=== PATIENT | female | born 1965 | race Caucasian/White ===

== ENCOUNTER 2017-09-28 11:57 | Emergency (ER) | payer BC, OTHER ==
[~2017-09-28] VITALS: Ht 166.4 cm; Wt 91.6 kg
[2017-09-28 12:01] VITALS: TEMP 36.9; Ht 166.4 cm; Wt 91.6 kg
[2017-09-28] MEDS ORDERED: ACETAMINOPHEN 500 MG TAB PO STA (12:11)
--- NOTE | 2017-09-28 13:08 | DIAGNOSTIC IMAGING REPORT ---
L ELBOW MIN 3 VIEWS ROUTINE, L FOREARM 2 VIEWS ROUTINE HISTORY: 51 years-old Female foosh, eval fx, subluxation acute left forearm and left elbow pain status post trauma COMPARISON: None available TECHNIQUE: 3 views of the left elbow and 2 views of the left forearm FINDINGS: ELBOW: 3 mm corticated bone fragment is seen within the distribution of the common extensor tendon origin suggesting. No acute fracture or subluxation is identified. No large joint effusion or opaque foreign body. FOREARM: No acute fracture or subluxation identified. No opaque foreign body or significant soft tissue swelling. IMPRESSION: 1. No acute fracture or subluxation. 2. 3 mm corticated bone fragment within the region of the common extensor tendon is likely dystrophic. The above report was generated using voice recognition software. It may contain grammatical, syntax or spelling errors. Electronically signed by: Kirk Bowen M.D. 09/28/2017 1:06 PM Dictated Date/Time: 09/28/2017 1:04 PM
--- NOTE | 2017-09-28 13:16 | EMERGENCY ROOM VISIT NOTE ---
ED Visit Note First contact with patient: 12:06 CHIEF COMPLAINT: Elbow injury HISTORY OF PRESENT ILLNESS: This is a 51-year-old female who presents to the emergency department after a fall onto the elbow and left arm earlier this morning around 10:30 AM. The patient states she was carrying in groceries when she slipped, falling forward and put her left arm out to stop herself. She said she landed on her hand first and then hit her elbow. She feels like her elbow hyperextended when she fell. She had immediate pain in the elbow that has gotten gradually worse, is constant, throbbing and aching, worse with movement, better with certain positioning and rest, 8/10. She did not take any medications for the pain. She did apply ice and some improvement. She denies any numbness or tingling of the arm, denies any shoulder pain and wrist pain or hand pain on the left side. She is right-hand dominant. She denies any previous injuries to the left arm. REVIEW OF SYSTEMS: A complete 6 point review of systems was reviewed with the patient with pertinent positives and negatives as per history of present illness. All else were negative. PMH: The patient is healthy; there is no significant medical or surgical history. SOCIAL HISTORY: Patient lives at home. She denies tobacco use. PHYSICAL EXAM: Vital Signs: Reviewed nurse's notes. She is alert and oriented, in no acute distress. The elbow is mildly swollen, but not deformed on inspection. The range of motion is limited in all directions because of the pain. There is no tenderness over the head of the radius. Supination and pronation of the forearm is somewhat painful in the elbow only. The skin is intact and there is no swelling over the olecranon process. Full range of motion of the left shoulder and wrist without pain. 2+ radial pulse with brisk cap refill. Sensation intact to light touch distal to the injury. IMAGING: L ELBOW MIN 3 VIEWS ROUTINE, L FOREARM 2 VIEWS ROUTINE HISTORY: 51 years-old Female david fish fx, subluxation acute left forearm and left elbow pain status post trauma COMPARISON: None available TECHNIQUE: 3 views of the left elbow and 2 views of the left forearm FINDINGS: ELBOW: 3 mm corticated bone fragment is seen within the distribution of the common extensor tendon origin suggesting. No acute fracture or subluxation is identified. No large joint effusion or opaque foreign body. FOREARM: No acute fracture or subluxation identified. No opaque foreign body or significant soft tissue swelling. IMPRESSION: 1. No acute fracture or subluxation. 2. 3 mm corticated bone fragment within the region of the common extensor tendon is likely dystrophic. EMERGENCY DEPARTMENT COURSE: I examined the patient. Differential diagnosis includes contusion, hematoma, sprain/strain, fracture, subluxation/dislocation, among others. An X-ray of the elbow does not show any fractures or dislocations. No fluid in the joint. The patient was given Tylenol for the pain , with some improvement. The patient was placed in a sling for comfort. She was updated on x-ray results and plan for discharge, encouraged to follow up with her primary care provider or an orthopedic surgeon as needed for pain that does not improve in the next few days. She was also given return precautions should her symptoms worsen, she verbalized understanding. The patient was discharged home in stable condition and ambulatory. Current/Historical Medications No Active Prescriptions or Reported Meds Allergies Coded Allergies: Codeine (Verified Allergy, Unknown, unknown, 09/28/17) Vital Signs Date Time Temp Pulse Resp B/P (MAP) Pulse Ox O2 Delivery O2 Flow Rate FiO2 09/28/17 13:46 67 20 140/80 97 09/28/17 12:01 36.9 92 18 146/98 98 Room Air Medications Administered Medications (Trade) Dose Ordered Sig/Adela Route Start Time Stop Time Status Last Admin Dose Admin Acetaminophen (Tylenol Tab) 1,000 mg NOW STAT PO 09/28/17 12:11 09/28/17 12:13 DC 09/28/17 12:23 1,000 MG Departure Information Impression Primary Impression: Contusion of left elbow and forearm Dispostion Home / Self-Care Condition GOOD Prescriptions No Active Prescriptions or Reported Meds Referrals No Doctor, Assigned (PCP) Denver Devine D.O. Patient Instructions ED Contusion Elbow, My [facility] Additional Instructions Rest the arm in a sling until the pain subsides; be sure to take the arm out of the sling several times throughout the day and moving her arm around to prevent your shoulder from becoming stiff. Apply ice to the elbow intermittently and frequently over the next 2 days. You may take Tylenol 1000 mg every 8 hours and/or ibuprofen 600 mg every 6-8 hours as needed for pain. See your own doctor or an orthopedic surgeon if you don't seem to be improving in 4 - 5 days. Work Instructions Return To Work: 2 days Problem Qualifiers Primary Impression: Contusion of left elbow and forearm Encounter type: initial encounter Qualified Codes: S50.12XA - Contusion of left forearm, initial encounter
[2017-09-28 13:46] VITALS: BP 140/80; PULSE 67; O2SAT 97
== END 2017-09-28 13:49 | disposition home or self-care (01) ==
LOC: C.EDB 11:59 → C.EDD 13:49
DX: S50.12XA Contusion of left forearm, initial encounter (principal); W01.0XXA Fall on same level from slipping, tripping and stumbling without subsequent striking against object, initial encounter; Y92.019 Unspecified place in single-family (private) house as the place of occurrence of the external cause

== ENCOUNTER → 2017-10-06 | Outpatient (CLI) | payer OTHER ==
--- NOTE | 2017-10-06 17:40 | DIAGNOSTIC IMAGING REPORT ---
MRI OF THE LEFT ELBOW NO CONTRAST CLINICAL HISTORY: Left elbow pain status post trauma COMPARISON STUDY: Conventional radiographic study dated 09/28/2017 FINDINGS: There is a capitellar bone bruise. There is a tear of the ulnar collateral ligament. There is a moderate joint effusion. There are focal areas of edema/hemorrhage within the brachialis and brachioradialis muscles. There is also edema present within the anconeus muscle. The biceps tendon appears intact. The common extensor tendon appears intact. The radial collateral ligament appears torn. There are no dislocations. IMPRESSION: 1. Tear of the ulnar collateral ligament 2. Tear of the radial collateral ligament 3. Moderate joint effusion 4. R bone bruise 5. Areas of focal edema/hemorrhage within the brachialis, brachioradialis, and anconeus muscles . Electronically signed by: Lawrence Manley M.D. 10/06/2017 5:39 PM Dictated Date/Time: 10/06/2017 5:23 PM
== END | disposition home or self-care (01) ==
PROVIDERS: ATTEND Orthopaedic Surgery
DX: S53.442A Ulnar collateral ligament sprain of left elbow, initial encounter (principal); S53.432A Radial collateral ligament sprain of left elbow, initial encounter; X58.XXXA Exposure to other specified factors, initial encounter